=== PATIENT | female | born 1970 | race Caucasian/White ===

== ENCOUNTER 2020-10-17 18:15 | Emergency (ER) | payer BC ==
[~2020-10-17] VITALS: Ht 165.1 cm; Wt 54.5 kg
[2020-10-17] MEDS ORDERED: SYNTHROID0.075 MG PO (18:26)
[2020-10-17] MEDS ORDERED: MENEST0.3 MG (18:26)
[2020-10-17] MEDS ORDERED: [UNRECOGNIZED DRUG - OTHER] PO (18:27)
[2020-10-17] MEDS ORDERED: ATIVAN0.5 MG (18:27)
[2020-10-17 19:41] VITALS: BP 129/89
== END 2020-10-17 19:44 | disposition home or self-care (01) ==
LOC: ED 18:15
DX: G45.9 Transient cerebral ischemic attack, unspecified (principal); F41.9 Anxiety disorder, unspecified; E03.9 Hypothyroidism, unspecified; Z79.890 Hormone replacement therapy

== ENCOUNTER → 2021-01-12 | Outpatient (CLI) | payer BC ==
[~2021-01-12] MED LIST: ATIVAN0.5 MG; MENEST0.3 MG; SYNTHROID0.075 MG PO; [UNRECOGNIZED DRUG - OTHER] PO
== END ==
LOC: RAD 16:07
DX: I31.3 Pericardial effusion (noninflammatory) (principal)
CPT/HCPCS: Q9967